=== PATIENT | female | born 1950 | race Caucasian/White ===

== ENCOUNTER 2018-12-25 11:11 | Inpatient (IN) | payer OTHER, MEDICARE ==
[2018-12-25] VITALS (21 sets, daily range): BP systolic 83–139; BP diastolic 48–69; BMI 25.5; BMI 28.7
[~2018-12-25] VITALS: Ht 157.5 cm; Wt 71.4 kg
--- NOTE | ~2018-12-25 | HEMODYNAMI ---
PATIENT:SANDIE MCKEON MEDICAL RECORD: [id number] : 54 LOCATION:[facility] ADMISSION DATE: 12/25/18 Generatedon:12/25/201814:09 Patient name: SANDIE MCKEON Patient #: [id number] SSN: : 1950 Date of study: 12/25/2018 Page: Of Hemodynamic Procedure Report Patient Data Patient Demographics Procedure consent was obtained First Name: SANDIE Gender: Female Last Name: LINDA : 1950 Patient #: [id number] Age: 68 year(s) Race: Unknown Additional ID: [id number] Contact details Address: [place] [address] State: [place] City: [place] Zip code: [address] Past Medical History Allergies Allergen Reaction Date Comments Reported Sulfa drugs 12/25/2018 Other allergy 12/25/2018 Lidocaine Admission Admission Data Admission Date: 12/25/2018 Admission Time: 11:11 Procedure Procedure Types Cath Procedure Diagnostic Procedure [facility] w/Coronaries Sedation Charges Moderate Sedation up to 15 minutes PCI Procedure Coronary Stent Coronary Stent Initial Procedure Description Procedure Date Procedure Date: 12/25/2018 Procedure Start Time: 13:41 Procedure End Time: 14:08 Procedure Staff Name Function Andrew Escobar MD Performing Physician Juan Carlos Bullock RN Nurse Clarice Perera RT Monitor Pravin Grullon RT Scrub Procedure Data Cath Procedure Fluoroscopy Diagnostic fluoroscopy Total fluoroscopy Time: 6 time: 6 min min Diagnostic fluoroscopy Total fluoroscopy dose: 839 dose: 839 mGy mGy Contrast Material Contrast Material Type Amount (ml) Isovue 300 108 Entry Location Entry Primary Successful Side Size Upsize Upsize Entry Closure Carranza ccessful Closure Location (Fr) 1 (Fr) 2 (Fr) Remarks Device Remarks Radial Right 6 Fr Mechanical artery Short Compression Estimated blood loss: 10 ml Diagnostic catheters Device Type Used For End Catheter Placement DIAGNOSTIC 5FR Super LV Angiography Torque RBL-TG ([id number]) DIAGNOSTIC 5FR Super Right Coronary Torque RBL-TG ([id number]) Angiography DIAGNOSTIC 5FR Super Left Coronary Torque RBL-TG ([id number]) Angiography Procedure Complications No complications Procedure Medications Medication Administration Route Dosage 0.9% NaCl I.V. 100 ml/hr Oxygen etCO2 Nasal cannula 2 l/min Heparin Flush Bag added to field 2 bags (1000units/500ml NS) unlisted medication added to field 10 ml Radial Cocktail added to field 1 syringe (Verapomil 2mg/Nitro 400mcg/Heparin 1500units) Versed I.V. 2 mg Fentanyl I.V. 100 mcg Radial Cocktail I.A. 1 syringe (Verapomil 2mg/Nitro 400mcg/Heparin 1500units) Heparin Bolus I.V. 5000 units Integrilin (Bolus I.V. 5.6 ml 2mg/ml) Integrilin (Bolus wasted 4.4 ml 2mg/ml) Plavix P.O. 600 mg Hemodynamics Rest Heart Rate: 60 (bpm) Pressure Samples Time Site Value (mmHg) Purpose Heart Use Rate(bpm) 13:45 LV 65/9,11 EDP 62 Gradients Valve Time Site Site Mean SEP/DFP Peak To Heart Use 1 2 (mmHg) (sec/min) Peak Rate (mmHg) (bpm) Aortic 13:46 LV AO 45 Snapshots Pre Cath Intra NCS Post Cath Vital Signs Time Heart Resp SPO2 etCO2 NIBP Rhythm Pain Sedation Rate (ipm) (%) (mmHg) (mmHg) Status Level (bpm) 13:34:56 62 19 96 0 104/60(82) NSR 0 (11) 10(A) , No pain 13:39:02 57 14 94 0 101/58(80) NSR 0 (11) 10(A) , No pain 13:43:10 54 14 94 0 90/45(64) NSR 0 (11) 9(A) , No pain 13:47:13 66 12 92 0 77/45(59) NSR 0 (11) 9(A) , No pain 13:51:11 62 14 92 0 83/51(66) NSR 0 (11) 9(A) , No pain 13:55:11 55 11 94 0 94/52(73) NSR 0 (11) 9(A) , No pain 13:59:12 64 12 94 0 105/57(75) NSR 0 (11) 9(A) , No pain 14:03:16 70 14 94 0 107/62(86) NSR 0 (11) 9(A) , No pain 14:07:20 83 15 95 0 117/64(84) NSR 0 (11) 9(A) , No pain Medications Time Medication Route Dose Verified Delivered Reason Not es Effectiveness by by 13:31:48 0.9% NaCl I.V. 100 Juan Carlos Juan Carlos Per physician ml/hr Kobe Bullock RN RN 13:31:57 Oxygen etCO2 2 l/min Juan Carlos Juan Carlos Per physician Nasal Kobe Bullock cannula RN RN 13:32:13 Heparin Flush added 2 bags Juan Carlos Juan Carlos used for Bag to Lorgallo Lorgallo procedure (1000units/500ml field RN RN NS) 13:33:37 Bupiviacaine added 10 ml Juan Carlos Juan Carlos for local 0.25% to Lorigan Lorigan anesthetic RN RN 13:34:07 Radial Cocktail added 1 Juan Carlos Juan Carlos used for (Verapomil to syringe Lorigan Lorigan procedure 2mg/Nitro RN RN 400mcg/Heparin 1500units) 13:39:44 Versed I.V. 2 mg Juan Carlos Juan Carlos for sedation Kobe Bullock RN RN 13:39:53 Fentanyl I.V. 100 mcg Juan Carlos Juan Carlos for sedation Kobe Bullock RN RN 13:43:58 Radial Cocktail I.A. 1 Juan Carlos Andrew for (Verapomil syringe Lorigan Shawn vasodilation 2mg/Nitro LILLY PERKINS 400mcg/Heparin 1500units) 13:54:10 Heparin Bolus I.V. 5000 Juan Carlos Juan Carlos for units Kobe Bullock anticoagulation RN RN 13:54:28 Integrilin I.V. 5.6 ml Juan Carlos Juan Carlos for (Bolus 2mg/ml) Kobe Bullock antiplatelet RN RN therapy 13:54:40 Integrilin wasted 4.4 ml Juan Carlos Juan Carlos to sharp's (Bolus 2mg/ml) Kobe Bullock RN RN 14:09:23 Plavix P.O. 600 mg Juan Carlos Juan Carlos for Kobe Bullock antiplatelet RN RN therapy Procedure Log Time Note 13:15:23 Time tracking: Regular hours (M-F 7:00 - 5:00) 13:15:28 Plan of Care:Hemodynamics will remain stable., Cardiac rhythm will remain stable., Comfort level will be maintained., Respiratory function will remain adequate., Patient/ family verbilizes understanding of procedure., Procedure tolerated without complication., Recovers from procedure without complications.. 13:16:02 Pravin Grullon RT(R) sent for patient. Start room use. 13:23:46 Patient received from Pre/Post Procedure Room to CCL 2 Alert and oriented. Tansferred to table in Supine position. 13:23:47 Warm blankets applied, and chloe hugger turned on for patient comfort. 13:23:47 Correct patient and procedure confirmed by team. 13:23:49 Signed procedure consent form obtained from patient. 13:23:50 ECG and BP/O2 sat monitors applied to patient. 13:23:50 Full Disclosure recording started 13:31:48 0.9% NaCl 100 ml/hr I.V. was administered by Juan Carlos Bullock RN; Per physician; 13:31:57 Oxygen 2 l/min etCO2 Nasal cannula was administered by Juan Carlos Bullock RN; Per physician; 13:32:13 Heparin Flush Bag (1000units/500ml NS) 2 bags added to field was administered by Juan Carlos Bullock RN; used for procedure; 13:33:37 Bupiviacaine 0.25% 10 ml added to field was administered by Juan Carlos Bullock RN; for local anesthetic; 13:33:43 Vital chart was started 13:34:07 Radial Cocktail (Verapomil 2mg/Nitro 400mcg/Heparin 1500units) 1 syringe added to field was administered by Juan Carlos Bullock RN; used for procedure; 13:34:30 Rhythm: sinus bradycardia 13:34:43 H&P Date Dictated: 12/22/2018 Within 30 days and on chart.. 13:34:44 Pre-procedure instructions explained to patient. 13:34:45 Pre-op teaching completed and patient verbalized understanding. 13:34:48 Family in patients room. 13:34:49 Patient NPO since Midnight. 13:35:03 Patient allergic to Sulfa drugs 13:35:30 Patient allergic to Other allergyLidocaine 13:35:34 Is the patient allergic to Iodine/contrast media? No. 13:35:36 Is patient on blood thinner?No 13:35:38 Patient diabetic? No. 13:35:41 Previous problem with sedation/anesthesia? No ? 13:35:42 Snore? Yes 13:35:43 Sleep apnea? No 13:35:44 Deviated septum? No 13:35:45 Opens mouth fully? Yes 13:35:46 Sticks out tongue? Yes 13:35:47 Airway obstruction? No ? 13:35:49 Dentures? No ? 13:35:52 Pre procedure: right dorsailis pedis pulse 2+ Normal; easily identifiable; not easily obliterated 13:35:53 Modified Lamont's test Ulnar < 7 seconds 13:35:55 Patient pain scale 0/10 ?. 13:36:03 IV patent on arrival in left forearm with 0.9% NaCl at [facility]. 13:36:05 Lab results completed and on chart. 13:36:36 Right Radial & Right Groin area was prepped with chlora-prep and draped in sterile fashion 13:36:37 Alarms reviewed by R. N. 13:36:38 Sharps counted by scrub and verified by R.N. 13:36:58 Baseline sample Acquired. 13:37:17 Use device set Radial Dx or PCI 13:37:18 ACIST Syringe (22236) opened to sterile field. 13:37:19 Medline Cath Pack ([id number]) opened to sterile field. 13:37:20 Bag Decanter (2002S) opened to sterile field. 13:37:20 DIAGNOSTIC WIRE .035 260cm J wire (448943) opened to sterile field. 13:37:21 ACIST Hand Control (21910) opened to sterile field. 13:37:21 ACIST Manifold (84103) opened to sterile field. 13:37:24 MBrace Wrist Support ([id number]) opened to sterile field. 13:37:36 SHEATH 6FR Slender (74-4664) opened to sterile field. 13:38:05 Final Timeout: patient, procedure, and site verified with staff and physician. All members of the team are in agreement. 13:38:09 Right Radial site verified by team. 13:38:20 Fire Safety Assessment: A--An alcohol-based skin anteseptic being used preoperatively. 13:38:23 Physical assessment completed. ASA score P 2 - A patient with mild systemic disease as per Andrew Escobar MD. 13:38:27 Sedation plan: IV Moderate Sedation Medication:Versed, Fentanyl 13:39:44 Versed 2 mg I.V. was administered by Juan Carlos Bullock RN; for sedation; 13:39:53 Fentanyl 100 mcg I.V. was administered by Juan Carlos Bullock RN; for sedation; 13:41:47 Procedure started. 13:41:52 Local anesthetic to right radial artery with Lidocaine 2% by Andrew Escobar MD.INITIAL ACCESS ONLY 13:42:29 A 6 Fr Short sheath was inserted into the Right Radial artery 13:42:32 Zero performed for pressure channel P1 13:43:58 Radial Cocktail (Verapomil 2mg/Nitro 400mcg/Heparin 1500units) 1 syringe I.A. was administered by Andrew Escobar MD; for vasodilation; 13:44:58 A DIAGNOSTIC 5FR Super Torque RBL-TG ([id number]) was advanced over the wire and used for LV Angiography. 13:45:53 LV gram done using GERARDO 13:45:56 EF : 60 % 13:46:22 A DIAGNOSTIC 5FR Super Torque RBL-TG ([id number]) was advanced over the wire and used for Right Coronary Angiography. 13:47:18 A DIAGNOSTIC 5FR Super Torque RBL-TG ([id number]) was advanced over the wire and used for Left Coronary Angiography. 13:49:34 Catheter removed. 13:49:51 Use device set [place] PCI 13:49:56 GUIDE 6FR HS I catheter (LA6HSI) opened to sterile field. 13:49:57 INFLATOR Merit BasixCompak (ZZ9576) opened to sterile field. 13:49:58 WHISPER 300cm guide wire ([id number]) opened to sterile field. 13:52:22 6 Fr HS I guide catheter was inserted over the wire 13:52:40 WHISPER wire advanced. 13:54:10 Heparin Bolus 5000 units I.V. was administered by Juan Carlos Bullock RN; for anticoagulation; 13:54:28 Integrilin (Bolus 2mg/ml) 5.6 ml I.V. was administered by Juan Carlos Bullock RN; for antiplatelet therapy; 13:54:40 Integrilin (Bolus 2mg/ml) 4.4 ml wasted was administered by Juan Carlos Bullock RN; to sharp's; 13:55:33 Wire removed. 13:55:41 CHOICE PT Extra Support J 300cm guide wire ([id number]) opened to sterile field. 13:56:51 CHOICE PT ES wire advanced. 13:57:32 Inflate balloon Inflation number: 1 A EMERGE OTW 2.5 x 20 balloon ([id number]) was prepped and advanced across the Mid RCA, then inflated to 12 LAURA for 0:32 (min:sec). 13:58:11 Inflation number: 2 The EMERGE OTW 2.5 x 20 balloon ([id number]) was reinflated across the Mid RCA, to 12 LAURA for 0:31 (min:sec). 14:00:59 Balloon removed over the wire. 14:04:05 Place stent Inflation Number: 3 A MARBIN OTW 3.0 x 38 stent ([id number]) was prepped and advanced across the Mid RCA. The stent was deployed at 14 LAURA for 0:49 (min:sec). 14:04:18 Stent catheter was removed intact over wire. 14:05:34 Wire removed. 14:05:34 Guide catheter removed. 14:05:42 Sheath removed intact; hemostasis achieved with Mechanical Compression to the Right Radial artery. 14:05:44 Procedure ended.(Physican Out) 14:05:57 Fluoroscopy time 06.00 minutes. 14:06:01 Fluoroscopy dose: 839 mGy 14:06:01 Flurop Dose total: 839 14:06:05 Contrast amount:Isovue 300 108ml. 14:06:06 Sharps counted by scrub and verified by R.N. 14:06:09 TR band inflated with 10cc of air. 14:06:10 Insertion/operative site no bleeding no hematoma. 14:06:15 Post right radial artery:stable, clean and dry 14:06:16 Post Procedure Pulses reassessed and unchanged 14:06:18 Post-procedure physical assessment completed. ASA score P 2 - A patient with mild systemic disease as per Andrew Escoabr MD. 14:06:20 Post procedure rhythm: unchanged. 14:06:23 Estimated blood loss: 10 ml 14:06:24 Post procedure instruction explained to patient.Patient verbalizes understanding. 14:06:25 Patient needs reinforcement of post procedure teaching. 14:06:45 Procedure type changed to Cath procedure, Diagnostic procedure, LHC, LHC w/Coronaries, Sedation Charges, Moderate Sedation up to 15 minutes, PCI procedure, Coronary Stent, Coronary Stent Initial 14:07:03 Procedure Complication : No complications 14:07:05 See physician's report for complete and final results. 14:07:15 TR BAND Standard ([id number]) opened to sterile field. 14:08:28 Procedure and supply charges have been captured, reviewed, submitted and are correct. 14:08:35 Vital chart was stopped 14:08:37 Report given to Pre/Post Procedure Room. 14:08:40 Patient transfered to Pre/Post Procedure Room with Stretcher. 14:08:46 Procedure ended. 14:08:46 Full Disclosure recording stopped 14:08:51 End room use (Document Last) 14:09:23 Plavix 600 mg P.O. was administered by Juan Carlos Bullock RN; for antiplatelet therapy; Intervention Summary Intervention Notes Time ActionType Lesion and Equipment Action# Pressure Duration Attributes Used 13:57:32 Inflate Mid RCA EMERGE OTW 1 12 00:32 balloon 2.5 x 20 balloon ([id number]) 13:58:11 Reinflate Mid RCA EMERGE OTW 2 12 00:31 balloon 2.5 x 20 balloon ([id number]) 14:04:05 Place stent Mid RCA MRABIN OTW 3.0 3 14 00:49 x 38 stent ([id number]) Device Usage Item Name Manufacture Quantity Catalog Number Hospital Part Current M inimal Lot# / Charge Number Stock Stock Serial# Code ACIST Syringe Acist 1 36210 929000 123332 598495 2 0 (43725) Medical Systems Inc Medline Cath Medline 1 [id number] 981419 63387 214025 5 Pack ([id number]) Bag Decanter Microtek 1 891707 07011 339209 5 () Medical Inc. DIAGNOSTIC [place] 1 948106 481829 193754 643807 3 0 WIRE .035 260cm J wire (180316) ACIST Hand Acist 1 70418 509653 327054 130458 5 Control Medical (71106) Systems Inc ACIST Acist 1 19604 767557 503889 887010 5 Manifold Medical (04621) Systems Inc MBrace Wrist Advanced 1 140-0250-00 055608 94108 476897 5 Support Vascular ([id number]) Dynamics SHEATH 6FR Terumo 1 [id number] 766765 126436 770515 5 Slender (80-1060) DIAGNOSTIC Cardinal 1 [id number] 986362 367291 5 5FR Super Health Torque RBL-TG ([id number]) GUIDE 6FR HS Medtronic 1 LA6HSI 706780 21343 608809 1 I catheter (LA6HSI) INFLATOR Merit 1 [id number] 771465 121075 713310 1 5 [facility] Medical BasixCompak (RV4487) WHISPER 300cm Singh 1 [id number] 417040 035935 479639 5 guide wire Vascular (9882662SO) CHOICE PT [place] 1 [id number] 531860 953109 528253 5 Extra Support Scientific J 300cm guide wire (9006961P7) EMERGE OTW [place] 1 [id number] 971498 939818 053582 5 [id number] 2.5 x 20 Scientific balloon ([id number]) MARBIN OTW 3.0 Medtronic 1 [id number] 198002 3620391 744798 5 [id number] x 38 stent ([id number]) TR BAND Terumo 1 [id number] 118703 791253 223001 4 0 Standard ([id number]) Signature Audit Rosalie Stage Time Signature Unsigned Intra-Procedure 12/25/2018 Clarice 2:09:53 PM Counts RT(R) Signatures Monitor : Clarice Signature : Counts RT Date : Time : [facility] [address] [place] [address]
[2018-12-25] MEDS ORDERED: BAYER CHEWABLE81 MG PO (11:30)
[2018-12-25] MEDS ORDERED: PEPCID AC20 MG PO (11:31)
[2018-12-25] MEDS ORDERED: LIPITOR40 MG PO (11:31)
[2018-12-25] MEDS ORDERED: METOPROLOL TART25 MG PO (11:31)
[2018-12-25] MEDS ORDERED: PAXIL20 MG PO (11:32)
[2018-12-25 11:50] LABS: BASOPHILS 0.7 % (0-2); EOSINOPHILS 1.6 % (0-7); HEMATOCRIT 40.6 % (36.0-48.0); HEMOGLOBIN 13.8 g/dL (12-16); IMMATURE GRANULOCYTES 0.3 % (0-5); MCH 30.7 pg (26.0-34.0); MCV 90.4 fL (80.0-100.0); MEAN PLATELET VOLUME 10.6 fL (7.4-10.4); NEUTROPHILS 61.4 % (40-80); PLATELET COUNT 206 10x3/uL (130-400); RBC 4.49 10x6/uL (4.00-5.40); RDW 11.8 % (11.5-14.5); WBC 6.9 10x3/uL (4.8-10.8)
[2018-12-25 11:58] LABS: CALC OSMOLALITY 282 mosm/kg (275-300); CALCIUM 8.7 mg/dL (8.5-10.1); CARBON DIOXIDE 26.2 mmol/L (21.0-32.0); CHLORIDE - SERUM 104 mmol/L (98-107); CREATININE - SERUM 0.8 mg/dL (0.6-1.3); GLUCOSE 111 mg/dL (74-106); POTASSIUM - SERUM 4.2 mmol/L (3.5-5.1); SODIUM 140 mmol/L (136-145); UREA NITROGEN 21 mg/dL (7-18); eGFR NON AFRICAN AMERICAN 76 mL/min (90-120)
--- NOTE | 2018-12-25 14:24 | NUR ---
RECEIVED PT FROM MEDICAL REFERRAL COORDINATOR, PT IS ALERT, DENIES ANY C/O PAIN OR NAUSEA. TR BAND IS CDI, FINGERS WARM AND PULSES PALPABLE. WRIST IMMOBILIZER IN PLACE. VSS, AT BEDSIDE. PO FLUIDS SERVED. DR BARRAGAN ON PT.
[2018-12-25] MEDS ORDERED: PLAVIX75 MG PO (14:29)
--- NOTE | 2018-12-25 14:44 | NUR ---
PT IS ALERT, DENIES ANY C/O. TR BAND IS CDI, FINGERS WARM, PULSES PALPABLE. VSS, CURT PO FLUIDS. REQUESTS LIGHT OFF, WANTS TO TAKE A NAP.
--- NOTE | 2018-12-25 15:07 | NUR ---
TR BAND IS CDI, FINGERS WARM AND PULSES PALPABLE, DENIES ANY C/O. CALL LIGHT IN REACH.
--- NOTE | 2018-12-25 15:58 | NUR ---
1530 PT'S BP DROPPED TO 59/29, HR 47. PT STATES FEELS NAUSEATED, DENIES ANY PAIN.PT PLACED IN [place] AND FLUIDS OPENED. PT IS ALERT, DENIES ANY SHORTNESS OF BREATH, SAT IS 97% ON 2LPM 1534 EKG OBTAINED SHOWING SINUS BRADYCARDIA AT AT 45, OTHERWISE NORMAL EKG. ZOFRAN 4MG IV X1 1538 BP AT 65/43, HR 48 PT STATES NAUSEA DECREASING. DENIES ANY C/O CHEST PAIN. 1545 PT ALERT, STATES FEELS MUCH BETTER, BP IS AT 84/55, HR 54. STATES PRIOR TO FEELING NAUSEATED, SHE HAD A 'DEEP PAIN' TO LEFT SIDE OF CHEST BUT STATES IT ONLY LASTED A FEW SECONDS. NOW STATES SHE FEELS SOME TIGHTNESS AND SORENESS TO CHEST BUT NO 'PAIN'. 1546 DR TINAJERO PAGEAbi AND RETURNED THE CALL. REPORTED ALL OF ABOVE WITH PT C/O OF CHEST TIGHTNESS AND SORENESS AT THIS TIME. ORDERS RECEIVED TO GIVE PT ONE LITER FLUID BOLUS AND INSTRUCT PT TO STOP METOPROLOL AT DISCHARGE. STATES PT CAN STILL GO HOME AT DC TIME IF NO FURTHER PROBLEMS AND CALL IF ANY FURTHER CONCERNS.
--- NOTE | 2018-12-25 16:21 | NUR ---
CR[employer]ITE AT BEDSIDE, PT CURT, STATES NAUSEA IS RESOLVED. SINUS SUZY AT 53, BP IS 84/54. TR BAND IS CDI, FINGERS WARM AND PULSE IS PALPABLE. AT BEDSIDE, PT DENIES NEEDS AT THIS TIME.
--- NOTE | 2018-12-25 16:44 | NUR ---
PT SITTING UP IN BED, SANDWICH SERVED. DENIES ANY C/O AT THIS TIME. TR BAND IS CDI TO RIGHT WRIST, NO BLEEDING OR HEMATOMA NOTED. FINGERS WARM, CAP REFILL IS BRISK. PT DENIES ANY C/O CHEST TIGHNESS OR PAIN.
--- NOTE | 2018-12-25 17:07 | NUR ---
3 CC OF AIR WEANED FROM TR BAND WTIH NO BLEEDING NOTED. FINGERS WARM AND CAP REFILL IS BRISK, PULSES PALPABLE. SINUS SUZY AT 58, BP IS 88/53.
--- NOTE | 2018-12-25 17:50 | NUR ---
1720 3 CC OF AIR WEANED FROM TR BAND WITH NO BLEEDING NOTED. 1730 PT BACK IN BED AFTER BEING ASSISTED TO BATHROOM VIA WC. BACK ON MONITOR AND BP IS 77/51, SINUS AT 69. PT STATES SHE IS HAVING A TIGHTNESS AND BURNING PAIN TO LOWER THROAT AREA AND STERNAL AREA WITH TAKING A DEEP BREATH. DENIES ANY SOB, NAUSEA. STATES IT ONLY HURTS IF SHE TAKES A DEEP BREATH AND NOT WITH HER NORMAL BREATHING BUT STATES IT IS CONCERNING TO HER IT IS 'SOMETHING I HAVENT FELT BEFORE' PT DENIES ANY OTHER C/O. [address] GARNICA AND REPORTED ABOVE. ORDER RECEIVED TO ADMIT PT TO PCU BED AND GET STAT ECHO AND FILTER CHANGER TO PAGE HIM WHEN IT IS DONE. 1745 PAGED MATTHEW WITH ECHO
--- NOTE | 2018-12-25 18:24 | NUR ---
181 PT STATES FEELING DIZZY AND NAUSEATED, STATES TIGHTNESS IN HER LOWER THROAT TO STERNAL AREA IS CONSTANT NOW. DR GARNICA PAGED WITH ABOVE INFO AND ORDER TO TRANSFER HER TO A CVICU BED. 1813 TECHNICAL PROJECT COORDINATOR NOTIFIED FOR BED.
--- NOTE | 2018-12-25 18:31 | NUR ---
PT ALERT, STATES NAUSEA AND DIZZINESS ARE IMPROVING. SINUS AT 66, BP IS 91/60. RESP WITH EASE ON O2 AT 2LPM VIA NC, SAT IS 99%. PAIN TO STERNAL AREA IS UNCHANGED, PT STATES A 'SORENESS'.
--- NOTE | 2018-12-25 18:39 | NUR ---
ECHO IN PROGRESS, PT IS ALERT, SINUS AT 61, BP IS 85/59.
[2018-12-25 18:47] LABS: BASOPHILS 0.3 % (0-2); EOSINOPHILS 0.7 % (0-7); HEMOGLOBIN 10.6 g/dL (12-16); IMMATURE GRANULOCYTES 0.1 % (0-5); LYMPHOCYTES 21.9 % (15-50); MCH 30.6 pg (26.0-34.0); MCHC 33.1 g/dL (31.0-37.0); MCV 92.5 fL (80.0-100.0); MEAN PLATELET VOLUME 10.6 fL (7.4-10.4); MONOCYTES 6.5 % (2-11); NEUTROPHILS 70.5 % (40-80); PLATELET COUNT 160 10x3/uL (130-400); RBC 3.46 10x6/uL (4.00-5.40); WBC 9.8 10x3/uL (4.8-10.8)
--- NOTE | 2018-12-25 18:56 | NUR ---
1851 ECHO COMPLETE, DR GARNICA HAS SPOKEN WITH MATTHEW, ORDER TO CONSULT NICOLASA. ORDER RECEIVED FOR ADDITIONAL LITER NS BOLUS. [address] BALDWIN FOR CONSULT.
--- NOTE | 2018-12-25 19:34 | NUR ---
1720 [facility] VIA ST[facility]CHER.
--- NOTE | 2018-12-25 19:40 | NUR ---
REPORT RECEIVED. PT RECIEVED FROM TIME STUDY OBSERVER. DR BALDWIN AT BEDSIDE. NEW ORDERS RECEIVED. ADM. ASSESSMENT COMPLETE PER FLOW SHEET. REFER FOR FINDINGS. WILL CONTINUE TO MONITOR
--- NOTE | 2018-12-25 20:00 | NUR ---
DR BALDWIN INFORMED OF PT STATUS NEW ORDERS RECEIVED. SEE JAN. WILL CALL WITH BLOOD GAS AFTER ORDERS CARRIED OUT.
--- NOTE | 2018-12-25 20:04 | NUR ---
ZOFRAN ADM FOR N/V. 400 CC OF EMESIS NOTED. NO FURTHER NEW CHANGES
--- NOTE | 2018-12-25 20:10 | NUR ---
PATEL ADM PER T ORDER, 21 CC IMMEDIATE DARK ISABEL URINE RETURN NOTED, URINE SAMPLE OBTAINED AT THIS TIME. CORE TEMP 37.3 DEGREES C.
--- NOTE | 2018-12-25 20:16 | NUR ---
CA CHLORIDE ADM OVER 5 MINUTES DILUTED VIA BUTROL CHAMBER. PT RESTING COMFORTABLY AT THIS TIME. STATES CP 6/10 CONSTANT PRESSURE ON CHEST. REPOSIITONED FOR COMFORT. STATES MINIMAL RELIEF.
--- NOTE | 2018-12-25 20:21 | NUR ---
1 AMP BICARB ADM VIA BUTROL. PT C/O OF UNCONTROLLED N/V GIVEN COOL RAG FOR COMFORT.
--- NOTE | 2018-12-25 21:54 | NUR ---
DR BALDWIN CALLED GIVEN UPDATE REPEAT BLOOD GASES READ, O2 VIA 5L NC O2 SAT 100% HR 58 BP 88/48 MAP OF 66 WITH JEROME AT 8MCG/MIN, PT C/O CP 8/10 RADIATING FROM CHEST TO R SHOULDER AND JAWLINE WITH N/V. UPO AT 1999 28ML DARK ISABEL, 2099 13 ML DARK ISABEL. NEW ORDERS RECEIVED AT THIS TIME ADM. WILL CONTINUE TO MONITOR
--- NOTE | 2018-12-25 23:00 | NUR ---
REASSESSMENT COMPLETE PER FLOW SHEET. VSS. NO NEW CHANGES PT SLEEPING COMFORTABLY WILL CONTINUE TO MONITOR
[2018-12-26] VITALS (49 sets, daily range): BP systolic 80–121; BP diastolic 51–71; Ht 157.5 cm; Wt 71.4 kg
--- NOTE | 2018-12-26 01:04 | NUR ---
PRN MORPHINE ADM FOR PAIN 07/04 RADIATING FROM CHEST BACK R SHOULDER AND JAW. DENIES FURTHER ENEDS
--- NOTE | 2018-12-26 03:00 | NUR ---
REASSESSMENT COMPLETE PER FLOW SHEET. VSS. NO NEW CHANGES WILL CONTINUE TO MONITOR
--- NOTE | 2018-12-26 05:20 | NUR ---
JEROME DECREASED TO 5MCG/MIN
--- NOTE | 2018-12-26 06:13 | NUR ---
DR BALDWIN CALLED GIVEN UPDATE. NEW ORDERS RECEIVED.
[2018-12-26 07:25] LABS: BASOPHILS 0.2 % (0-2); EOSINOPHILS 0.3 % (0-7); HEMATOCRIT 32.9 % (36.0-48.0); HEMOGLOBIN 10.7 g/dL (12-16); IMMATURE GRANULOCYTES 0.1 % (0-5); LYMPHOCYTES 22.8 % (15-50); MCH 30.2 pg (26.0-34.0); MCHC 32.5 g/dL (31.0-37.0); MCV 92.9 fL (80.0-100.0); MEAN PLATELET VOLUME 10.6 fL (7.4-10.4); MONOCYTES 9.2 % (2-11); NEUTROPHILS 67.4 % (40-80); PLATELET COUNT 157 10x3/uL (130-400); RBC 3.54 10x6/uL (4.00-5.40); RDW 12.2 % (11.5-14.5)
[2018-12-26 07:37] LABS: ALBUMIN 2.9 g/dL (3.4-5.0); ANION GAP 10.8 mmol/L (8-16); BILIRUBIN - TOTAL 0.59 mg/dL (0.2-1.3); CALCIUM 7.6 mg/dL (8.5-10.1); CARBON DIOXIDE 27.9 mmol/L (21.0-32.0); CREATININE - SERUM 0.9 mg/dL (0.6-1.3); MAGNESIUM - SERUM 1.9 mg/dL (1.8-2.4); POTASSIUM - SERUM 3.7 mmol/L (3.5-5.1); PROTEIN - SERUM 5.2 g/dL (6.4-8.2)
[2018-12-26 07:58] LABS: APPEARANCE CLEAR (CLEAR); BILIRUBIN NEGATIVE (NEGATIVE); COLOR YELLOW (YELLOW); EPITHELIAL CELLS 0-5 /hpf (0-5); GLUCOSE NEGATIVE (NEGATIVE); KETONE NEGATIVE (NEGATIVE); NITRITE NEGATIVE (NEGATIVE); PROTEIN NEGATIVE (NEGATIVE); RED CELLS - URINE 0-5 /hpf (0-5); UROBILINOGEN NORMAL (NORMAL)
[2018-12-26 07:59] LABS: BACTERIA FEW /hpf (NONE SEEN); MUCUS <1+ /lpf (NONE SEEN); WHITE CELLS - URINE RARE /hpf (0-5)
--- NOTE | 2018-12-26 15:09 | EC ---
PATIENT:SANDIE MCKEON DATE OF SERVICE: 12/25/18 SEX: F MEDICAL RECORD: [id number] DATE OF : 54 LOCATION:[place] [address] AGE OF PATIENT: 68 ADMISSION DATE: 12/25/18 REFERRING PHYSICIAN: INTERPRETING PHYSICIAN: MATTHIEU MACKEY MD ECHOCARDIOGRAM REPORT ECHO CHARGES 5 ECHO LIMITED Date: 12/26/18 CLINICAL DIAGNOSIS: PERICARDIAL EFFUSION ECHOCARDIOGRAPHIC MEASUREMENTS (adult normal given) AC root (d.<3.7cm) 0 cm LV Septum d (<1.2 cm> 0 cm Valve Excursion 0 cm LV Septum (systole) 0 cm Left Atria (s.<4.0cm> 0 cm LVPW d(<1.2cm) 0 cm RV (d.<2.3cm) 0 cm LVPW (sytole) 0 cm LV diastole(<5.6CM) 0 cm MV E-F(>70mm/sec) 0 cm LV systole 0 cm LVOT Diameter 0 cm MV exc.(>10mm) 0 cm Est.ejection fraction (50-75%) 0 % DOPPLER: LVIT 0 cm/sec A 0 cm/sec E 0 cm/sec LA 0 cm/sec RVSP 0 mmHg LVOT 0 cm/sec AOP1/2T 0 m/s Asc. Ao 0 cm/sec RVOT 0 cm/sec RA 0 cm/sec PA 0 cm/sec AV Gradient Peak 0 mmHg AV Mean 0 mmHg AV Area 0 cm MV Gradient Peak 0 mmHg MV Mean 0 mmHg MV Area 0 cm COMMENTS: LIMITED STUDY (2-D ONLY) Licensing Engineer: Alex HAJIOE Compliance Nurse: 1 Dr. Mackey TAPE# PACS Pericardial Effusion Y DATE OF SERVICE: 12/25/2018 PROCEDURE: Echocardiogram. FINDINGS: 1. Left ventricular chamber size is within normal limits. Left ventricular systolic function is normal. Overall ejection fraction estimated at 60%. 2. Left atrium, right atrium, right ventricular chamber sizes are within normal limits. 3. Valvular structures have normal structure and motion. ECHOCARDIOGRAM REPORT [id number] SANDIE MCKEON 4. Doppler interrogation reveals no significant valvular insufficiency or stenosis. 5. Small to moderate pericardial effusion is present. There does not appear to be hemodynamic compromise or right ventricular collapse present. 6. No evidence of left ventricular thrombus. TRANSINT:[id number] Voice Confirmation ID: [id number] DOCUMENT ID: [id number] MATTHIEU MACKEY MD at 1509 CC: [id number] DICTATION DATE: 12/26/18 1103 HOURLY SHIFT: 12/26/18 1215 ADM IN [facility] [address] [place] [address]
--- NOTE | 2018-12-26 15:09 | EC ---
PATIENT:SANDIE MCKEON DATE OF SERVICE: 12/25/18 SEX: F MEDICAL RECORD: [id number] DATE OF : [birth year] LOCATION:[place] [address] AGE OF PATIENT: 68 ADMISSION DATE: 12/25/18 REFERRING PHYSICIAN: INTERPRETING PHYSICIAN: MATTHIEU MACKEY MD ECHOCARDIOGRAM REPORT ECHO CHARGES 5 ECHO LIMITED Date: 12/26/18 CLINICAL DIAGNOSIS: PERICARDIAL EFFUSION ECHOCARDIOGRAPHIC MEASUREMENTS (adult normal given) AC root (d.<3.7cm) 0 cm LV Septum d (<1.2 cm> 0 cm Valve Excursion 0 cm LV Septum (systole) 0 cm Left Atria (s.<4.0cm> 0 cm LVPW d(<1.2cm) 0 cm RV (d.<2.3cm) 0 cm LVPW (sytole) 0 cm LV diastole(<5.6CM) 0 cm MV E-F(>70mm/sec) 0 cm LV systole 0 cm LVOT Diameter 0 cm MV exc.(>10mm) 0 cm Est.ejection fraction (50-75%) 0 % DOPPLER: LVIT 0 cm/sec A 0 cm/sec E 0 cm/sec LA 0 cm/sec RVSP 0 mmHg LVOT 0 cm/sec AOP1/2T 0 m/s Asc. Ao 0 cm/sec RVOT 0 cm/sec RA 0 cm/sec PA 0 cm/sec AV Gradient Peak 0 mmHg AV Mean 0 mmHg AV Area 0 cm MV Gradient Peak 0 mmHg MV Mean 0 mmHg MV Area 0 cm COMMENTS: LIMITED STUDY (2-D ONLY) Data Sme: Alex POSADA Demurrage Worker: 1 Dr. Mackey TAPE# PACS Pericardial Effusion Y DATE OF SERVICE: 12/26/2018 PROCEDURE: Limited echocardiogram. FINDINGS: Left ventricular chamber size is within normal limits. Left ventricular systolic function is unchanged at 60%. Pericardial effusion is small to moderate. It is unchanged, mostly around the right side, still no signs of RV or RA collapse. TRANSINT:[id number] Voice Confirmation ID: [id number] DOCUMENT ID: [id number] ECHOCARDIOGRAM REPORT [id number] SANDIE MCKEON JEFFREY MD at 1509 CC: [id number] DICTATION DATE: 12/26/18 1107 AUTOMOBILE ASSEMBLY SUPERVISOR: 12/26/18 1218 ADM IN [facility] [address] [facility], [facility]
--- NOTE | 2018-12-26 17:00 | MORECARE ---
CASE MANAGEMENT DISCHARGE SUMMARY PATIENT: SANDIE MCKEON UNIT: [id number] ADM DATE: 12/25/18 AGE: 68 : [birth year] SEX: F ROOM/BED: [facility] AUTHOR: GEGE RODRIGUEZ PHYSICIAN: REFERRING PHYSICIAN: HARLEY TINAJERO MD DATE OF SERVICE: 12/26/18 Discharge Plan Patient Name: SANDIE MCKEON Facility: [facility]:[place] : 1950 Planned Disposition: Home Anticipated Discharge Date: Discharge Date: Expected LOS: Initial Reviewer: [email or web address] Initial Review Date: 12/26/2018 Generated: 12/26/18 6:00 pm Patient Name: SANDIE MCKEON Page 01932 at 1700 All edits/amendments must be made on the electronic document DICTATION DATE: 12/26/181658 CHECKER CASHIER: FERNANDA 12/26/181658 RPT#: [id number] DC DATE: STATUS: ADM IN [facility] [address] [place] [address] END OF REPORT
--- NOTE | 2018-12-26 17:07 | MORECARE ---
CASE MANAGEMENT DISCHARGE SUMMARY PATIENT: SANDIE VAZQUEZ UNIT: [id number] ADM DATE: 12/25/18 AGE: 68 : 52 SEX: F ROOM/BED: [facility] AUTHOR: JENNIFER,DOC PHYSICIAN: REFERRING PHYSICIAN: HARLEY TINAJERO MD DATE OF SERVICE: 12/26/18 Discharge Plan Patient Name: SANDIE VAZQUEZ Facility: [facility]:[place] : 1950 Planned Disposition: Home Anticipated Discharge Date: Discharge Date: Expected LOS: Initial Reviewer: [email or web address] Initial Review Date: 12/26/2018 Generated: 12/26/18 6:07 pm Comments DCP- Discharge Planning Updated by [email or web address]: Lizbeth Lopez on 12/26/18 4:[address] Patient Name: SANDIE VAZQUEZ Admission Status: Elective Accout number: [id number] Admission Date: 12-25-2018 : 1950 Admission Diagnosis: Attending: HARLEY TINAJERO Current LOS: 1 Anticipated DC Date: Planned Disposition: Home Primary Insurance: [facility] Discharge Planning Comments: CM met with patient at bedside after obtaining verbal consent. Patient states she plans on returning home after discharge with her . Patient states she will have family transport her home via private vehicle. Patient denies any discharge needs at this time. CM will continue to follow and assist as needed for discharge planning / needs. Table Cover Folder: Lizbeth Lopez DCPIA - Discharge Planning Initial Assessment Updated by [email or web address]: Lizbeth Lopze on 12/26/18 5:01 pm * Is the patient Alert and Oriented? Yes * How many steps to enter\exit or inside your home? * PCP Rosita Ledesma FISH AGENT - [facility] * Pharmacy [place] * Preadmission Environment Home with Family * ADLs Independent * Equipment None * List name and contact numbers for known caregivers / representatives who currently or will assist patient after discharge: Sj Vazquez - spouse- [phone] * Verbal permission to speak to the caregivers and representatives has been obtained from the patient. N/A * Community resources currently utilized None * Additional services required to return to the preadmission environment? No * Can the patient safely return to the preadmission environment? Yes * Has this patient been hospitalized within the prior 30 days at any hospital? No Last DP export: 12/26/18 4:00 pm Patient Name: SANDIE VAZQUEZ Page 36883 at 1707 All edits/amendments must be made on the electronic document DICTATION DATE: 12/26/181706 ENVELOPE PATTERNMAKER: FERNANDA 12/26/181706 RPT#: [id number] DC DATE: STATUS: ADM IN [facility] [address] [place] [address] END OF REPORT
--- NOTE | 2018-12-26 19:00 | NUR ---
REPORT RECEIVED CARE ASSUMED. PT LAYING IN BED RESTING. VERBALIZES CHEST PAIN WHILE TRYING TO REST. ST ELEVATION NOTED ON MONITOR. DISTANT MUFFLED HEART TONES NOTED S1S2. ASSESSMENT DONE SEE FLOW SHEET. VSS. BP WITH IN PARAMETER. ICU MONITORS IN PLACE ALARMS SET AND VERIFIED WILL CONTINUE TO MONITOR.
[2018-12-27] VITALS (16 sets, daily range): BP systolic 87–114; BP diastolic 54–78
--- NOTE | 2018-12-27 01:02 | NUR ---
2100 MEDS GIVEN PER MAR. VSS. NO SIGNS OF ACUTE DISTRESS NOTED. 230 REASSESSMENT DONE SEE FLOW SHEET. VSS. 0000 NPO AT THIS TIME. 0100 VSS. NO SIGNS OF ACUTE DISTRESS NOTED WILL CONTINUE TO MONITOR.
--- NOTE | 2018-12-27 02:48 | NUR ---
REASSESSMENT DONE SEE FLOW SHEET. VSS. NO SIGNS OF ACUTE DISTRESS NOTED.
--- NOTE | 2018-12-27 05:00 | NUR ---
COMPLETE BED BATH GIVEN. PARTIAL LINEN CHANGE. PATEL CARE PROVIDED.
[2018-12-27 06:14] LABS: BASOPHILS 0.2 % (0-2); EOSINOPHILS 0.4 % (0-7); HEMATOCRIT 30.3 % (36.0-48.0); IMMATURE GRANULOCYTES 0.3 % (0-5); MCH 30.8 pg (26.0-34.0); MCV 93.2 fL (80.0-100.0); MEAN PLATELET VOLUME 10.6 fL (7.4-10.4); MONOCYTES 11.6 % (2-11); NEUTROPHILS 77.5 % (40-80); RBC 3.25 10x6/uL (4.00-5.40); RDW 12.4 % (11.5-14.5); WBC 10.5 10x3/uL (4.8-10.8)
[2018-12-27 06:18] LABS: PLATELET COUNT 116 10x3/uL (130-400)
[2018-12-27 06:29] LABS: ALBUMIN 2.6 g/dL (3.4-5.0); ALKALINE PHOSPHATASE 65 U/L (46-116); ALT (SGPT) 169 U/L (10-68); BILIRUBIN - TOTAL 1.01 mg/dL (0.2-1.3); CALC OSMOLALITY 277 mosm/kg (275-300); CALCIUM 7.5 mg/dL (8.5-10.1); CARBON DIOXIDE 23.5 mmol/L (21.0-32.0); CHLORIDE - SERUM 105 mmol/L (98-107); CREATININE - SERUM 0.7 mg/dL (0.6-1.3); GLUCOSE 126 mg/dL (74-106); POTASSIUM - SERUM 3.3 mmol/L (3.5-5.1); PROTEIN - SERUM 5.2 g/dL (6.4-8.2); SODIUM 138 mmol/L (136-145); UREA NITROGEN 13 mg/dL (7-18); eGFR NON AFRICAN AMERICAN 89 mL/min (90-120)
--- NOTE | 2018-12-27 10:30 | NUR ---
DR. VASQUEZ HERE. TRANSFER ORDERS REC'D.
--- NOTE | 2018-12-27 12:55 | OP ---
PATIENT NAME: SANDIE MCKEON MEDICAL RECORD: [id number] :54 LOCATION:[id number] ADMISSION DATE:12/25/18 SURGEON: HARLEY TINAJERO MD DATE OF OPERATION: 12/25/2018 PROCEDURE: Left heart catheterization, selective coronary angiography, right radial approach. CATHETERS: Radial sheath and [place] catheter. The procedure was well tolerated. We proceeded with PTCA and stenting of the right coronary when procedure was finished. FINDINGS: Left ventriculography in 30-degree GERARDO view: Normal wall motion. Normal systolic function. CORONARY ANATOMY: LEFT MAIN: Left main is free of disease. LAD: It has bridging in its mid portion but no significant stenosis. CIRCUMFLEX: Small circumflex, free of disease. RIGHT CORONARY: It has 2 sequential stenoses of 90% or better. It basically is totally occluded with some filling via spdz-ie-bktkr collaterals. IMPRESSION: Intervention to the right momentarily. DESCRIPTION OF PROCEDURE: Using the indwelling radial sheath, hockey stick guide catheter provided excellent guide catheter support followed by a 300-cm Whisper wire was placed across both occlusions in the right dominant portion of vessel. Then, using the balloon as exchange catheter, we placed a PT [place] wire and I brought the balloon back for multiple inflations, up to 12 atmospheres. This showed marked taoist of antegrade flow with AWAIS flow improving to 3, but with severe dissection in the proximal portion. We then covered this area with a long 3.0 x 38-mm drug-eluting stent up to 14 atmospheres. Final angiography shows excellent resolution of basically totally occluded right with no significant residual. AWAIS flow improved from 0 to 3. Heparin and Integrilin were used during the case. Plavix was loaded in the lab. Sheath was closed with TR band. TRANSINT:[id number] Voice Confirmation ID: [id number] DOCUMENT ID: [id number] HARLEY TINAJERO MD at 1255 CC: [id number] DICTATION DATE: 12/25/18 1418 CONCRETE SCULPTOR: 12/25/18 1457 [place] [address]
--- NOTE | 2018-12-27 15:29 | NUR ---
1510: IV L FOREARM AND L HAND SALINE LOCKED. 1520: AMANDA CHRISTIANSON.
--- NOTE | 2018-12-27 18:00 | NUR ---
UP TO BATHROOM. VOIDED WITHOUT DIFFICULTY. IN TEARS DUE TO PAIN ON ARRIVAL BACK TO BED. MORPHINE 2 MG GIVEN IV.
--- NOTE | 2018-12-27 19:00 | NUR ---
REPORT RECIEVED, SHIFT ASSESSMENT COMPLETE, PLEASE SEE FLOW SHEETS FOR DETAILS. STATES PAIN TOLERABLE 5/10 AND INCREASES WITH DEEP BREATHING. DENIES ANY NEEDS. HEMODYNAMICALLY STABLE. BED LOW AND LOCKED, CALL LIGHT IN REACH. WILL CPOC.
--- NOTE | 2018-12-27 20:20 | NUR ---
UP TO RESTROOM, VOIDED. SOB UPON RETURN TO BED, QUICKLY RECOVERED. POSITIONED FOR COMFORT. VSS, WILL CPOC.
--- NOTE | 2018-12-27 20:38 | NUR ---
CALLED AND GAVE REPORT TO EDMAR CARR.
--- NOTE | 2018-12-27 21:45 | NUR ---
SAFELY TRANSPORTED PATIENT TO [facility], ASSISTED WITH AMBULATION TO BED. BED LOW AND LOCKED, CALL LIGHT IN REACH.
--- NOTE | 2018-12-27 22:35 | NUR ---
RECIEVED FROM CVICU.ALERT AND ORIENTED X4.IV X2 TO L HAND AND LEFT FA. ASSESSMENT COMPLETED. BRUISES TO RIGHT FA AND AC. DENIES ANY NEEDS AT THIS TIME.
[2018-12-28 03:55] VITALS: BP 94/56
[2018-12-28 09:27] VITALS: BP 103/61
--- NOTE | 2018-12-28 14:56 | NUR ---
TELEMETRY SR. RESP UL ON . AT BS. CALL LIGHT IN REACH. WILL CONT. OF CARE.
[2018-12-28 16:20] VITALS: BP 103/59
--- NOTE | 2018-12-28 19:53 | NUR ---
INITIAL ROUNDS AND ASSESSMENT. PT RESTING IN BED WTH NO DISTRESS. MONITOR AND CPOC.
[2018-12-28 20:24] VITALS: BP 117/50
--- NOTE | 2018-12-28 21:56 | NUR ---
BEDTIME MEDS GIVEN. PT HAS LOTS OF APPREHENSION ABOUT POSSIBLE PROCEDURE TOMORROW. STATES SHE HAD A LONG DISCUSSION WITH HER FAMILY AND THEY HAVE DECIDED TO ASK FOR A TRANSFER TO THE [facility] WHEN THEY SPEAK WITH DR BALDWIN IN THE AM. PT NAUSEATED AND HAS A LIGHT HEADACHE. MEDICATED WITH TYLENOL FOR HEADACHE AND ZOFRAN IV FOR NAUSEA.
[2018-12-28 23:55] VITALS: BP 103/65
--- NOTE | 2018-12-29 00:38 | NUR ---
CALLED INTO ROOM BY PATIENT. C/O FEELING IF SHE HAS A SORE ON HER "BACKSIDE". ASSESSED RIGHT HIP/BUTTOCK AREA AND NOTED TWO SMALL FLUID FILLED LESIONS. PT REPORTS HISTORY OF SHINGLES. AREA MARKED AND WILL FOLLOW UP WITH MD IN AM TO SEE IF IT MAY BE SHINGLE LESIONS JUST BEGINNING TO BREAK.
[2018-12-29 03:50] VITALS: BP 132/66
[2018-12-29 06:57] LABS: BASOPHILS 0.4 % (0-2); EOSINOPHILS 3.7 % (0-7); HEMOGLOBIN 9.5 g/dL (12-16); IMMATURE GRANULOCYTES 0.2 % (0-5); MCH 30.3 pg (26.0-34.0); MCHC 32.8 g/dL (31.0-37.0); MCV 92.4 fL (80.0-100.0); MEAN PLATELET VOLUME 11.3 fL (7.4-10.4); MONOCYTES 8.8 % (2-11); NEUTROPHILS 69.9 % (40-80); PLATELET COUNT 125 10x3/uL (130-400); RBC 3.14 10x6/uL (4.00-5.40); RDW 12.3 % (11.5-14.5)
[2018-12-29 07:03] LABS: WBC 5.4 10x3/uL (4.8-10.8)
[2018-12-29 07:20] LABS: ALBUMIN 2.6 g/dL (3.4-5.0); ALKALINE PHOSPHATASE 130 U/L (46-116); ALT (SGPT) 129 U/L (10-68); BILIRUBIN - TOTAL 0.72 mg/dL (0.2-1.3); CARBON DIOXIDE 27.2 mmol/L (21.0-32.0); CHLORIDE - SERUM 111 mmol/L (98-107); CREATININE - SERUM 0.7 mg/dL (0.6-1.3); GLUCOSE 92 mg/dL (74-106); POTASSIUM - SERUM 3.2 mmol/L (3.5-5.1); PROTEIN - SERUM 5.6 g/dL (6.4-8.2); SODIUM 147 mmol/L (136-145); eGFR NON AFRICAN AMERICAN 89 mL/min (90-120)
[2018-12-29 07:21] LABS: CALC OSMOLALITY 288 mosm/kg (275-300); UREA NITROGEN 5 mg/dL (7-18)
--- NOTE | 2018-12-29 07:45 | NUR ---
ASSESSMENT DONE. DENIES NEEDS.
[2018-12-29 07:53] LABS: APTT 36.1 SECONDS (22.8-39.4); INR 1.24 (0.85-1.17)
--- NOTE | 2018-12-29 07:56 | NUR ---
RESTING QUIETLY RESP UNLABORED NAD NOTED MONITOR SHOWS SR RATE 64
[2018-12-29 08:29] LABS: PLT FUNCT.(P2Y12) PLAVIX 261 PRU (194-418)
[2018-12-29 08:37] LABS: ERYTHROCYTE SEDIMENTATION RATE 29 mm/hr (0-30)
--- NOTE | 2018-12-29 10:23 | MORECARE ---
CASE MANAGEMENT DISCHARGE SUMMARY PATIENT: SANDIE VAZQUEZ UNIT: [id number] ADM DATE: 12/25/18 AGE: 68 : 52 SEX: F ROOM/BED: D.7639 AUTHOR: GEGE RODRIGUEZ PHYSICIAN: REFERRING PHYSICIAN: HARLEY TINAJERO MD DATE OF SERVICE: 12/29/18 Discharge Plan Patient Name: SANDIE VAZQUEZ Facility: [facility]:[place] : 1950 Planned Disposition: Home Anticipated Discharge Date: Discharge Date: Expected LOS: Initial Reviewer: [email or web address] Initial Review Date: 12/26/2018 Generated: 12/29/18 11:23 am Comments DCP- Discharge Planning Updated by [email or web address]: Lisa Carlson on 12/29/18 9:[address] MANJULA STOLL LPN CAME TO ME STATING THAT DR VASQUEZ WANTED THE PATIENT TRANSFERRED TO A SURGEON SPRAYER AUTOMATIC SPRAY MACHINE AT THE [facility]. I PLACED A CALL TO THE [facility] AT [phone] @ 0753 AND SPOKE WITH LILLY PAK WITH BED CONTROL. SHE STATED THAT THE SURGEONS TAKE THEIR OWN CALL AND SHE GAVE ME THEIR NAMES (DR. ZUNILDA DAWSON, DR. SHILOH PERAZA, AND DR. JANNA ESTRADA) AND STATED THAT ALL 3 COULD BE REACHED THROUGH THE MEDICAL EXCHANGE AT [phone]. I THANKED HER FOR HER TIME AND STATED I MAY BE CALLING HER BACK IN THE NEAR FUTURE. @ [address] TINAJERO, EXPLAINING THE ABOVE TO HIM. HE STATED TO TRY DR. SHILOH PERAZA FOR THE NEED OF A PERICARDIAL WINDOW AND HE GAVE ME HIS CELL NUMBER FOR CONTACT. @ 0803 I CALLED THE MEDICAL EXCHANGE, PER GERALDINE, THOSE DOCTORS WANT TO BE CALLED ON THIER CELL PHONE BY THE REQUESTING DOCTOR. SHE GAVE ME DR. TOUSSAINT CELL NUMBER AND I GAVE IT TO DR. TINAJERO. PER BOBO, DR. TINAJERO CAME BACK AND STATED DR PERAZA WAS ACCEPTING AND HIS NURSE PRACTITIONER, SHELLY, WOULD BE THE NURSE GYNECOLOGY AND GAVE HIS NUMBER OF [phone]. @3024 I PLACED A CALL TO LILLY PAK AND EXPLAINED THAT DR. TINAJERO HAD ACCEPTANCE FROM DR. PERAZA. SHE STATED THAT SHE WAS GOING TO HAVE TO CALL AND VERIFY, BUT IN THE MEANTIME REQUESTED PAPERWORK BE FAXED. I FAXED ALL REQUESTED DOCUMENTATION TO HER AT [phone]. @3821 PASHA CALLED BACK TO RECEIVE REPORT ON THE PATIENT. I ASKED IF SHE WOULD BE WILLING TO RECEIVE THIS FROM THE BEDSIDE NURSE, SHE SAID YES, AND CALL TRANSFERRED TO [facility] FOR REPORT. WILL WAIT FOR RETURN CALL WITH BED. DCP- Discharge Planning Updated by [email or web address]: Lizbeth Lopez on 12/26/18 4:[address] Patient Name: SANDIE VAZQUEZ Admission Status: Elective Accout number: [id number] Admission Date: 12-25-2018 : 1950 Admission Diagnosis: Attending: HARLEY TINAJERO Current LOS: 1 Anticipated DC Date: Planned Disposition: Home Primary Insurance: [facility] Discharge Planning Comments: CM met with patient at bedside after obtaining verbal consent. Patient states she plans on returning home after discharge with her . Patient states she will have family transport her home via private vehicle. Patient denies any discharge needs at this time. CM will continue to follow and assist as needed for discharge planning / needs. Meter Reader Inspector: Lizbeth Lopez DCPIA - Discharge Planning Initial Assessment Updated by [email or web address]: Lizbeth Lopez on 12/26/18 5:01 pm * Is the patient Alert and Oriented? Yes * How many steps to enter\exit or inside your home? * PCP Rosita Ledesma [employer] POLICE OFFICER - [facility] * Pharmacy [place] * Preadmission Environment Home with Family * ADLs Independent * Equipment None * List name and contact numbers for known caregivers / representatives who currently or will assist patient after discharge: Sj Vazquez - spouse- [phone] * Verbal permission to speak to the caregivers and representatives has been obtained from the patient. N/A * Community resources currently utilized None * Additional services required to return to the preadmission environment? No * Can the patient safely return to the preadmission environment? Yes * Has this patient been hospitalized within the prior 30 days at any hospital? No Last DP export: 12/26/18 4:07 pm Patient Name: SANDIE VAZQUEZ Page 14784 at 1023 All edits/amendments must be made on the electronic document DICTATION DATE: 12/29/18 1022 QUALITY ASSURANCE QA LAB ANALYST: FERNANDA 12/29/18 1022 RPT#: [id number] DC DATE: STATUS: ADM IN [facility] [address] [place] [address] END OF REPORT
[2018-12-29] MEDS ORDERED: ZOFRAN4 MG PO (11:42)
[2018-12-29] MEDS ORDERED: K-TAB10 MEQ PO (11:42)
[2018-12-29] MEDS ORDERED: COLCRYS0.6 MG PO (11:42)
[2018-12-29] MEDS ORDERED: APAP325 MG PO (11:43)
--- NOTE | 2018-12-29 12:00 | MORECARE ---
CASE MANAGEMENT DISCHARGE SUMMARY PATIENT: SANDIE VAZQUEZ UNIT: [id number] ADM DATE: 12/25/18 AGE: 68 : 52 SEX: F ROOM/BED: D.9339 AUTHOR: GEGE RODRIGUEZ PHYSICIAN: REFERRING PHYSICIAN: HARLEY TINAJERO MD DATE OF SERVICE: 12/29/18 Discharge Plan Patient Name: SANDIE VAZQUEZ Facility: [facility]:[place] : 1950 Planned Disposition: Home Anticipated Discharge Date: Discharge Date: Expected LOS: Initial Reviewer: [email or web address] Initial Review Date: 12/26/2018 Generated: 12/29/18 12:59 pm Comments DCP- Discharge Planning Updated by [email or web address]: Lisa Carlson on 12/29/18 10:[address] @1136 RECEIVED A CALL FROM LILLY PAK BED CONTROL. SHE WAS ASKING IF THE PATIENT HAD LEFT OUR FACILITY YET OR NOT. I EXPLAINED THAT I WAS NOT AWARE WE HAD A BED FOR HER AND NEITHER WAS THE RECRUITING SPECIALIST SO HER PAPERS HAD NOT BEEN COMPLETED. SHE STATED THAT SHE GAVE THE NURSE WHO GAVE HER REPORT THE ROOM NUMBER OF [id number]. I APOLOGIZED AND ASKED IF SHE WANTED ME TO CALL WHEN EMS LEFT WITH HER AND YES WOULD BE THE ANSWER. THE RECRUITING SPECIALIST IS WORKING ON THE DISCHARGE NOW AND I HAVE ASKED MANJULA TO LET ME KNOW WHEN THE AMBULANCE GETS HERE TO PICK THE PATIENT UP. IT IS AT THIS TIME THAT I HAVE REALIZED THAT I DID NOT GET MACHINE STONECUTTER APPROVAL TO TRANSFER THE PATIENT. I HAVE CALLED AND SPOKE WITH LILLY CHAMBERSASSEMBLY INSTRUCTIONS WRITER AND EXPLAINED THAT THE PATIENT IS ACCEPTED AND I FORGOT TO CALL PREVIOUSLY AND THAT THE FAMILY HAS TOLD DR BALDWIN THAT THEY DO NOT WANT HIM DOING THE PROCEDURE. SHE IS TO TALK WITH NUHA ABOUT ADMIN APPROVAL AND CALL ME BACK. DCP- Discharge Planning Updated by [email or web address]: Lisa Carlson on 12/29/18 9:16 am EMILI STOLL LPN CAME TO ME STATING THAT DR VASQUEZ WANTED THE PATIENT TRANSFERRED TO A SURGEON FILING WRITER AT THE [facility]. I PLACED A CALL TO THE [facility] AT [phone] @ 4220 AND SPOKE WITH PASHA, RN WITH BED CONTROL. SHE STATED THAT THE SURGEONS TAKE THEIR OWN CALL AND SHE GAVE ME THEIR NAMES (DR. ZUNILDA DAWSON, DR. SHILOH PERAZA, AND DR. JANNA ESTRADA) AND STATED THAT ALL 3 COULD BE REACHED THROUGH THE MEDICAL EXCHANGE AT [phone]. I THANKED HER FOR HER TIME AND STATED I MAY BE CALLING HER BACK IN THE NEAR FUTURE. @ [address] TINAJERO, EXPLAINING THE ABOVE TO HIM. HE STATED TO TRY DR. SHILOH PERAZA FOR THE NEED OF A PERICARDIAL WINDOW AND HE GAVE ME HIS CELL NUMBER FOR CONTACT. @ 0803 I CALLED THE MEDICAL EXCHANGE, PER GERALDINE, THOSE DOCTORS WANT TO BE CALLED ON THIER CELL PHONE BY THE REQUESTING DOCTOR. SHE GAVE ME DR. TOUSSAINT CELL NUMBER AND I GAVE IT TO DR. TINAJERO. PER BOBO, DR. TINAJERO CAME BACK AND STATED DR PERAZA WAS ACCEPTING AND HIS NURSE PRACTITIONER, SHELLY, WOULD BE THE TAKER OFF DRYING KILN AND GAVE HIS NUMBER OF [phone]. @8112 I PLACED A CALL TO LILLY PAK AND EXPLAINED THAT DR. TINAJERO HAD ACCEPTANCE FROM DR. PERAZA. SHE STATED THAT SHE WAS GOING TO HAVE TO CALL AND VERIFY, BUT IN THE MEANTIME REQUESTED PAPERWORK BE FAXED. I FAXED ALL REQUESTED DOCUMENTATION TO HER AT [phone]. @7198 PASHA CALLED BACK TO RECEIVE REPORT ON THE PATIENT. I ASKED IF SHE WOULD BE WILLING TO RECEIVE THIS FROM THE BEDSIDE NURSE, SHE SAID YES, AND CALL TRANSFERRED TO [facility] FOR REPORT. WILL WAIT FOR RETURN CALL WITH BED. DCP- Discharge Planning Updated by [email or web address]: Lizbeth Lopez on 12/26/18 4:[address] Patient Name: SANDIE VAZQUEZ Admission Status: Elective Accout number: [id number] Admission Date: 12-25-2018 : 1950 Admission Diagnosis: Attending: HARLEY TINAJERO Current LOS: 1 Anticipated DC Date: Planned Disposition: Home Primary Insurance: [facility] Discharge Planning Comments: CM met with patient at bedside after obtaining verbal consent. Patient states she plans on returning home after discharge with her . Patient states she will have family transport her home via private vehicle. Patient denies any discharge needs at this time. CM will continue to follow and assist as needed for discharge planning / needs. Bale Stacker: Lizbeth Lopez DCPIA - Discharge Planning Initial Assessment Updated by [email or web address]: Lizbeth Lopez on 12/26/18 5:01 pm * Is the patient Alert and Oriented? Yes * How many steps to enter\exit or inside your home? * PCP Rosita Ledesma HEALTH INFORMATION CLERK - [facility] * Pharmacy [place] * Preadmission Environment Home with Family * ADLs Independent * Equipment None * List name and contact numbers for known caregivers / representatives who currently or will assist patient after discharge: Sj Vazquez - spouse- [phone] * Verbal permission to speak to the caregivers and representatives has been obtained from the patient. N/A * Community resources currently utilized None * Additional services required to return to the preadmission environment? No * Can the patient safely return to the preadmission environment? Yes * Has this patient been hospitalized within the prior 30 days at any hospital? No Last DP export: 12/29/18 9:23 am Patient Name: SANDIE VAZQUEZ Page 65096 at 1200 All edits/amendments must be made on the electronic document DICTATION DATE: 12/29/18 1159 RIB BENDER: FERNANDA 12/29/18 1159 RPT#: [id number] [place] DATE: STATUS: ADM IN [facility] [address] [place] [address] END OF REPORT
--- NOTE | 2018-12-29 13:17 | NUR ---
SPOKE WITH CW WITH [employer] VIA PHONE. HE ADVISED NO UPFRONT FEE REQUIRED BY PATIENT FOR SERVICES BUT AN ABN FORM WILL NEED TO BE SIGNED BY PATIENT WITH THE UNDERSTANDING THAT PT WILL POSSIBLY BE RESPONSIBLE FOR $1600.00 FOR TRANSFER TO [facility] IT IS A PATIENT REQUEST.. THIS INFORMATION WAS RELAYED TO PATIENT, PATIENT SPOUSE AND PT SON WITH VERBAL ACKNOWLEDGEMENT RETURNED BY ALL. I ALSO PROVIDED ADDITIONAL INFORMATION AND ANSWERED QUESTIONS REGARDING TRANSFER REQUESTED BY PT AND FAMILY
--- NOTE | 2018-12-29 15:29 | NUR ---
[facility] IS HERE TO DIRECTOR ECONOMIC PT FOR TRANSFER.
--- NOTE | 2018-12-30 09:18 | MORECARE ---
CASE MANAGEMENT DISCHARGE SUMMARY PATIENT: SANDIE VAZQUEZ UNIT: [id number] ADM DATE: 12/25/18 AGE: 68 : 54 SEX: F ROOM/BED: D.1119 AUTHOR: JENNIFER,GEGE PHYSICIAN: REFERRING PHYSICIAN: HARLEY TINAJERO MD DATE OF SERVICE: 12/30/18 Discharge Plan Patient Name: SANDIE VAZQUEZ Facility: [facility]:[place] : 1950 Planned Disposition: Home Anticipated Discharge Date: 12/29/18 Discharge Date: 12/29/2018 Expected LOS: 4 Initial Reviewer: [id number] Initial Review Date: 12/26/2018 Generated: 12/30/18 10:18 am Comments DCP- Discharge Planning Updated by [id number]: Lisa Carlson on 12/29/18 10:[address] @1139 RECEIVED A CALL FROM LILLY PAK BED CONTROL. SHE WAS ASKING IF THE PATIENT HAD LEFT OUR FACILITY YET OR NOT. I EXPLAINED THAT I WAS NOT AWARE WE HAD A BED FOR HER AND NEITHER WAS THE SHOULDER JOINER SO HER PAPERS HAD NOT BEEN COMPLETED. SHE STATED THAT SHE GAVE THE NURSE WHO GAVE HER REPORT THE ROOM NUMBER OF [id number]. I APOLOGIZED AND ASKED IF SHE WANTED ME TO CALL WHEN EMS LEFT WITH HER AND YES WOULD BE THE ANSWER. THE SHOULDER JOINER IS WORKING ON THE DISCHARGE NOW AND I HAVE ASKED MANJULA TO LET ME KNOW WHEN THE AMBULANCE GETS HERE TO PICK THE PATIENT UP. IT IS AT THIS TIME THAT I HAVE REALIZED THAT I DID NOT GET [employer] APPR[employer]AL TO TRANSFER THE PATIENT. I HAVE CALLED AND SPOKE WITH LILLY [employer] LAW JUDGE AND EXPLAINED THAT THE PATIENT IS ACCEPTED AND I FORGOT TO CALL PREVIOUSLY AND THAT THE FAMILY HAS TOLD DR BALDWIN THAT THEY DO NOT WANT HIM DOING THE PROCEDURE. SHE IS TO TALK WITH NUHA ABOUT ADMIN APPROVAL AND CALL ME BACK. DCP- Discharge Planning Updated by [id number]: Lisa Carlson on 12/29/18 9:[address] MANJULA STOLL LPN CAME TO ME STATING THAT DR VASQUEZ WANTED THE PATIENT TRANSFERRED TO A SURGEON DENTAL INSTRUCTOR AT THE [facility]. I PLACED A CALL TO THE [facility] AT [phone] @ 1424 AND SPOKE WITH LILLY PAK WITH BED CONTROL. SHE STATED THAT THE SURGEONS TAKE THEIR OWN CALL AND SHE GAVE ME THEIR NAMES (DR. ZUNILDA DAWSON, DR. SHILOH PERAZA, AND DR. JANNA ESTRADA) AND STATED THAT ALL 3 COULD BE REACHED THROUGH THE MEDICAL EXCHANGE AT [phone]. I THANKED HER FOR HER TIME AND STATED I MAY BE CALLING HER BACK IN THE NEAR FUTURE. @ [address] TINAJERO, EXPLAINING THE ABOVE TO HIM. HE STATED TO TRY DR. SHILOH PERAZA FOR THE NEED OF A PERICARDIAL WINDOW AND HE GAVE ME HIS CELL NUMBER FOR CONTACT. @ 0803 I CALLED THE MEDICAL EXCHANGE, PER GERALDINE, THOSE DOCTORS WANT TO BE CALLED ON THIER CELL PHONE BY THE REQUESTING DOCTOR. SHE GAVE ME DR. TOUSSAINT CELL NUMBER AND I GAVE IT TO DR. TINAJERO. PER BOBO, DR. TINAJERO CAME BACK AND STATED DR PERAZA WAS ACCEPTING AND HIS NURSE PRACTITIONER, SHELLY, WOULD BE THE JOB ESTIMATOR AND GAVE HIS NUMBER OF [phone]. @9239 I PLACED A CALL TO LILLY PAK AND EXPLAINED THAT DR. TINAJERO HAD ACCEPTANCE FROM DR. PERAZA. SHE STATED THAT SHE WAS GOING TO HAVE TO CALL AND VERIFY, BUT IN THE MEANTIME REQUESTED PAPERWORK BE FAXED. I FAXED ALL REQUESTED DOCUMENTATION TO HER AT [phone]. @7056 PASHA CALLED BACK TO RECEIVE REPORT ON THE PATIENT. I ASKED IF SHE WOULD BE WILLING TO RECEIVE THIS FROM THE BEDSIDE NURSE, SHE SAID YES, AND CALL TRANSFERRED TO [facility] FOR REPORT. WILL WAIT FOR RETURN CALL WITH BED. DCP- Discharge Planning Updated by [id number]: Lizbeth Lopez on 12/26/18 4:[address] Patient Name: SANDIE VAZQUEZ Admission Status: Elective Accout number: [id number] Admission Date: 12-25-2018 : 1950 Admission Diagnosis: Attending: HARLEY TINAJERO Current LOS: 1 Anticipated DC Date: Planned Disposition: Home Primary Insurance: [facility] Discharge Planning Comments: CM met with patient at bedside after obtaining verbal consent. Patient states she plans on returning home after discharge with her . Patient states she will have family transport her home via private vehicle. Patient denies any discharge needs at this time. CM will continue to follow and assist as needed for discharge planning / needs. Environmental Services Technician: Lizbeth Lopez DCPIA - Discharge Planning Initial Assessment Updated by [id number]: Lizbeth Lopez on 12/26/18 5:01 pm * Is the patient Alert and Oriented? Yes * How many steps to enter\exit or inside your home? * PCP Rosita Ledesma PHLEBOTOMY SPECIALIST - [facility] * Pharm[facility] * Preadmission Environment Home with Family * ADLs Independent * Equipment None * List name and contact numbers for known caregivers / representatives who currently or will assist patient after discharge: Sj Vazquez - spouse- [phone] * Verbal permission to speak to the caregivers and representatives has been obtained from the patient. N/A * Community resources currently utilized None * Additional services required to return to the preadmission environment? No * Can the patient safely return to the preadmission environment? Yes * Has this patient been hospitalized within the prior 30 days at any hospital? No Last DP export: 12/29/18 10:59 am Patient Name: SANDIE VAZQUEZ Page [id number] at 0918 All edits/amendments must be made on the electronic document DICTATION DATE: 12/30/18917 LIVESTOCK NUTRITION TERRITORY MANAGER: FERNANDA 12/30/18917 RPT#: [id number] DC DATE:12/29/18 STATUS: DIS IN [facility] [address] [place] [address] END OF REPORT
--- NOTE | 2019-01-02 12:22 | DS ---
PATIENT:SANDIE MCKEON :54 MEDICAL RECORD: [id number] DISCHARGE SUMMARY ADMISSION DATE: 12/25/18 DISCHARGE DATE: 12/29/18 DATE OF ADMISSION: 12/25/2018. DATE OF DISCHARGE: 12/29/2018. PROBLEM LIST: 1. Coronary artery disease, status post intervention this admission. 2. Coronary perforation, exact spot difficult, superior to the PDA. 3. Pericardial effusion with markedly symptomatic pericarditis. 4. Urinary tract infection present on admission. BRIEF HISTORY AND HOSPITAL COURSE: Admitted, underwent intervention, had development of a small pericardial effusion of about 1 cm circumferential too narrow for pericardiocentesis, felt window would be indicated due to the patient's comfort level. She was transferred to the [facility] for the procedure. TRANSINT:[id number] Voice Confirmation ID: [id number] DOCUMENT ID: [id number] HARLEY TINAJERO MD at 1222 CC: [id number] DICTATION DATE: 12/29/18822 TAVERN CAR ATTENDANT: 12/29/18 0844 DIS IN 12/29/18 [facility] [address] [place] [address]
--- NOTE | 2019-01-02 12:22 | EC ---
PATIENT:SANDIE MCKEON DATE OF SERVICE: 12/25/18 SEX: F MEDICAL RECORD: [id number] DATE OF : [birth year] LOCATION:D. D.211 AGE OF PATIENT: 68 ADMISSION DATE: 12/25/18 REFERRING PHYSICIAN: INTERPRETING PHYSICIAN: HARLEY TINAJERO MD ECHOCARDIOGRAM REPORT ECHO CHARGES 5 ECHO LIMITED Date: 12/27/18 CLINICAL DIAGNOSIS: PERICARDIAL EFFUSION ECHOCARDIOGRAPHIC MEASUREMENTS (adult normal given) AC root (d.<3.7cm) 0 cm LV Septum d (<1.2 cm> 0 cm Valve Excursion 0 cm LV Septum (systole) 0 cm Left Atria (s.<4.0cm> 0 cm LVPW d(<1.2cm) 0 cm RV (d.<2.3cm) 0 cm LVPW (sytole) 0 cm LV diastole(<5.6CM) 0 cm MV E-F(>70mm/sec) 0 cm LV systole 0 cm LVOT Diameter 0 cm MV exc.(>10mm) 0 cm Est.ejection fraction (50-75%) 0 % DOPPLER: LVIT 0 cm/sec A 0 cm/sec E 0 cm/sec LA 0 cm/sec RVSP 0 mmHg LVOT 0 cm/sec AOP1/2T 0 m/s Asc. Ao 0 cm/sec RVOT 0 cm/sec RA 0 cm/sec PA 0 cm/sec AV Gradient Peak 0 mmHg AV Mean 0 mmHg AV Area 0 cm MV Gradient Peak 0 mmHg MV Mean 0 mmHg MV Area 0 cm COMMENTS: LIMITED STUDY (2-D ONLY) Blending Machine Feeder: 1 JO ANN HAJIOE Automatic Fabric Cutter: 3 Dr. Mcneil TAPE# PACS Pericardial Effusion Y DATE OF SERVICE: This is 2-D only. No LVH. LV internal dimension is normal. Wall motion is normal. EF is greater than or equal to 55%. Aortic valve is tricuspid. No evidence of stenosis by 2-D inspection. Left atrium appears normal. Right-sided chambers appear normal with no evidence of diastolic collapse. Hvgor-ky-wmohff circumferential pericardial effusion is noted with no hemodynamic significance. ECHOCARDIOGRAM REPORT [id number] SANDIE MCKEON TRANSINT:[id number] Voice Confirmation ID: [id number] DOCUMENT ID: [id number] HARLEY TINAJERO MD at 1222 CC: [id number] DICTATION DATE: 12/28/18 0957 PROFESSOR OF COMMUNICATION: 12/28/18 1149 DIS IN 12/29/18 [place] [id number] [place] [address]
== END 2018-12-29 15:30 | disposition short-term general hospital (02) | DRG 247 ==
LOC: D.CATH 11:11 → D.CVICU 19:19 → D.M2 12-27 21:50
PROVIDERS: Internal Medicine Interventional Cardiology; Thoracic Surgery (Cardiothoracic Vascular Surgery); ADMIT Internal Medicine Interventional Cardiology
PROC: B2111ZZ Fluoroscopy of Multiple Coronary Arteries using Low Osmolar Contrast (ICD-10-PCS; 2018-12-25)
PROC: B2151ZZ Fluoroscopy of Left Heart using Low Osmolar Contrast (ICD-10-PCS; 2018-12-25)
PROC: 027034Z Dilation of Coronary Artery, One Artery with Drug-eluting Intraluminal Device, Percutaneous Approach (ICD-10-PCS; principal; 2018-12-25 13:30)
PROC: 4A023N7 Measurement of Cardiac Sampling and Pressure, Left Heart, Percutaneous Approach (ICD-10-PCS; 2018-12-25 13:30)
DX: I25.10 Atherosclerotic heart disease of native coronary artery without angina pectoris (principal); I97.51 Accidental puncture and laceration of a circulatory system organ or structure during a circulatory system procedure; N39.0 Urinary tract infection, site not specified; Q24.5 Malformation of coronary vessels; I30.9 Acute pericarditis, unspecified; Y84.0 Cardiac catheterization as the cause of abnormal reaction of the patient, or of later complication, without mention of misadventure at the time of the procedure; Y92.234 Operating room of hospital as the place of occurrence of the external cause